=== PATIENT | female | born 1980 | race Asian ===

== ENCOUNTER 2020-01-04 15:05 | Emergency (ER) | payer OTHER ==
[~2020-01-04] VITALS: Ht 167.6 cm; Wt 113.4 kg
[2020-01-04 15:12] VITALS: TEMP 98.2
[2020-01-04 16:10] LABS: PLATELET COUNT 249 K/uL (152-353)
[2020-01-04 16:19] LABS: POTASSIUM 3.6 mmol/L (3.6-5.2)
[2020-01-04 18:00] VITALS: BP 141/90
== END 2020-01-04 18:00 | disposition home or self-care (01) ==
LOC: ED 15:05
PROVIDERS: Emergency Medicine
DX: B34.9 Viral infection, unspecified (principal); Z20.828 Contact with and (suspected) exposure to other viral communicable diseases; Z3A.11 11 weeks gestation of pregnancy
CPT/HCPCS: 36415; 36600; 80053; 81000; 82805; 83605; 85027; 85379; 87040; 87502; 87635; 87651; 93005; 99283; 99284; U00003

== ENCOUNTER 2020-07-18 21:42 | Emergency (ER) | payer OTHER ==
[~2020-07-18] VITALS: Ht 167.6 cm; Wt 113.4 kg
[2020-07-18 22:06] LABS: PLATELET COUNT 230 K/uL (152-353)
[2020-07-18 22:17] LABS: PARTIAL THROMBOPLASTIN TIME 21.6 SECONDS (24.5-33.6)
[2020-07-19 01:32] VITALS: BP 123/54; TEMP 98.5
== END 2020-07-19 01:32 | disposition short-term general hospital (02) ==
LOC: ED 21:42
PROVIDERS: Hospitalist
PROC: 10E0XZZ Delivery of Products of Conception, External Approach (ICD-10-PCS; principal; 2020-07-18)
DX: O80 Encounter for full-term uncomplicated delivery (principal); Z37.0 Single live birth; Z3A.38 38 weeks gestation of pregnancy
CPT/HCPCS: 36415; 80053; 80307; 80320; 81000; 82962; 85027; 85610; 85730; 96361; 96365; 96366; 96375; 96376; 99285; 99464; J0690; J2270; J2405; J2590